=== PATIENT | female | born 1945 | race African-American/Black ===

== ENCOUNTER 2018-05-14 17:41 | Emergency (ER) | payer OTHER ==
[~2018-05-14] VITALS: Ht 167.6 cm; Wt 132.4 kg
[2018-05-14] MEDS ORDERED: ASPirin 81 mg TAB PO ONE (18:30)
[2018-05-14 18:46] LABS: Basophils # (auto) 0.1 uL; Eosinophils # (auto) 0.1 uL; Eosinophils % (auto) 1.1 % (0.0-7.0); Hematocrit 38.9 % (36.0-46.0); Hemoglobin 12.5 g/dL (12.2-16.2); Lymphocytes # (auto) 1.6 uL; Lymphocytes % (auto) 17.5 % (10.0-50.0); Mean Corpuscular Hemoglobin 27.9 pg (28.0-32.0); Mean Corpuscular Hgb Conc. 32.2 g/dL (32.0-36.0); Mean Corpuscular Volume 86.9 fL (80.0-100.0); Monocytes # (auto) 0.8 uL; Monocytes % (auto) 9.1 % (0.0-12.0); Neutrophils # (auto) 6.5 uL; Neutrophils % (auto) 71.3 % (37.0-80.0); Platelet Count (auto) 253 10^3/uL (140-450); Red Blood Cells 4.48 10^6/uL (4.0-5.20); Red Cell Distribution Width 15.3 % (11.8-14.3); White Blood Cell 9.1 10^3/uL (4.4-10.8)
[2018-05-14 19:01] LABS: INR 0.96 (0.9-1.15); Partial Thromboplastin Time 27.8 sec (23.78-33.04); Prothrombin Time 10.3 sec (9.27-12.13)
[2018-05-14 19:04] LABS: Calcium 8.2 mg/dL (8.5-10.1); Magnesium 1.9 mg/dL (1.6-2.6); Potassium 3.6 mmol/L (3.5-5.1)
[2018-05-14 19:10] LABS: BUN/Creatinine Ratio 15.1; Bilirubin, Total 0.2 mg/dL (0.2-1.0); Total Protein 7.3 g/dL (6.4-8.2)
[2018-05-14 22:09] VITALS: BP 168/83
== END 2018-05-14 22:37 | disposition short-term general hospital (02) ==
LOC: ER 17:41 → EDBD 17:41 → ER 22:37
DX: I24.9 Acute ischemic heart disease, unspecified (principal); I48.91 Unspecified atrial fibrillation; E11.9 Type 2 diabetes mellitus without complications; J45.909 Unspecified asthma, uncomplicated; Z90.710 Acquired absence of both cervix and uterus; Z90.89 Acquired absence of other organs
CPT/HCPCS: 36415; 71045; 80053; 82962; 83735; 83880; 84484; 85025; 85610; 85730; 93005; 94761

== ENCOUNTER 2025-01-01 23:08 | Emergency (ER) | payer OTHER ==
[~2025-01-01] VITALS: Ht 152.4 cm; Wt 113.4 kg
[2025-01-01 23:46] LABS: Basophils # (auto) 0.1 10 ^3/uL (0-0.2); Basophils % (auto) 1.1 % (0.0-2.0); Eosinophils # (auto) 0.1 10 ^3/uL (0-0.8); Eosinophils % (auto) 1.2 % (0.0-7.0); Hematocrit 39.5 % (36.0-46.0); Hemoglobin 12.9 g/dL (12.2-16.2); Lymphocytes # (auto) 2.6 10 ^3/uL (0.4-5.4); Lymphocytes % (auto) 26.7 % (10.0-50.0); Mean Corpuscular Hemoglobin 28.6 pg (28.0-32.0); Mean Corpuscular Hgb Conc. 32.6 g/dL (32.0-36.0); Mean Corpuscular Volume 87.8 fL (80.0-100.0); Monocytes # (auto) 0.8 10 ^3/uL (0-1.3); Monocytes % (auto) 8.6 % (0.0-12.0); Neutrophils % (auto) 62.4 % (37.0-80.0); Nucleated Red Blood Cells % 0.1 %; Platelet Count (auto) 223 10^3/uL (140-450); Red Blood Cells 4.49 10^6/uL (4.0-5.20); Red Cell Distribution Width 15.4 % (11.8-14.3); White Blood Cell 9.6 10^3/uL (4.4-10.8)
[2025-01-01 23:54] LABS: Alanine Aminotransferase 13 U/L (7-40); Alkaline Phosphatase 77 U/L (46-116); Anion Gap 10 (5-15); BUN/Creatinine Ratio 18.8 (10.0-20.0); Blood Urea Nitrogen 16 mg/dL (9-23); Calcium 8.8 mg/dL (8.7-10.4); Carbon Dioxide 26 mmol/L (20-31); Partial Thromboplastin Time 26.8 SEC (24.5-34.5); Potassium 3.6 mmol/L (3.5-5.1); Prothrombin Time 10.6 sec (9.3-11.8); Sodium 144 mmol/L (136-145); Total Protein 6.2 g/dL (5.7-8.2)
[2025-01-01 23:58] LABS: Aspartate Aminotransferase 13 U/L (13-40); Bilirubin, Total 0.3 mg/dL (0.2-1.0); Chloride 108 mmol/L (98-107); Glucose 184 mg/dL (74-106)
[2025-01-02 00:04] VITALS: PULSE 54; RESP 11; O2SAT 95
--- NOTE | 2025-01-02 00:05 | ED.PDOC ---
History of Present Illness HPI Comments 79 y/o morbidly obese F is BIBA for 1x day history of nonradiating, sternal chest pain. Per EMS report, pain is intermittent, reproducible with palpation and respirations, and an 8/10 in severity, initially. Patient took 4x ASA prior to EMS arrival and was given 1x NTG en route, with mild improvement of pain to a 6/10 in severity. Patient has a history of asthma, angina, AFib, DM II, HLD, and HTN in addition to having a recent cardiac catheterization and pending consultation for a heart valve replacement for narrowing valves. She denies any palpitations, nausea, vomiting, dizziness, palpation, or further associated symptoms. 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 Helper Notes, Medications, Allergies Allergies: Coded Allergies: NO KNOWN ALLERGIES (Unverified , 02/18/15) Information Source: Patient, Emergency Med Personnel Mode of Arrival: EMS Severity: Moderate Timing: Days Duration: Since onset Prehospital treatment: 12 Lead EKG, ASA, [place], NTG Past Medical History PAST MEDICAL HISTORY: AFIB, Angina, Asthma, CHF, DM, High Lipids, HTN Surgical History: Appendectomy, , Hysterectomy Surgical History (Other): heart catheterization TUBE DEPATCHER History: No Pertinent TUBE DEPATCHER History Family History Family History: No family hx of Cancer, No family hx of Stroke Social History Smoker: Non-Smoker Alcohol: Denies ETOH Use Drugs: Denies Drug Use Lives In: Home All Other Systems: Reviewed and Negative (Comprehensive systems review obtained and negative except for what is stated in the HPI.) Physical Exam General Appearance: Mild Distress, Obese, Other (elderly) HEENT: Normal ENT Inspection, Pharynx Normal, TMs Normal Neck: Full Range of Motion, Non-Tender, Normal, Normal Inspection Respiratory: Chest Non-Tender, Lungs Clear, No Accessory Muscle Use, No Respiratory Distress, Normal Breath Sounds Cardiovascular: No Edema, No JVD, No Murmur, No Gallop, Normal Peripheral Pulses, Regular Rate/Rhythm Breast Exam: Deferred Gastrointestinal: No Organomegaly, Non Tender, No Pulsatile Mass, Normal Bowel Sounds, Soft Genitalia: Deferred Pelvic: Deferred Rectal: Deferred Extremities: No calf tenderness, Normal capillary refill, Normal inspection, Normal range of motion, Non-tender, No pedal edema Musculoskeletal : Apperance: Normal Neurologic: Alert, 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 Was a procedure done?: No EKG EKG : Pulse Rate (adult): 83 [place]: Normal Cardiac Rhythm: NSR Block: None Hypertrophy: None ST: Normal Differential Dx Considerations may include: MD, PE, ACS, PNA, URI, angina, anxiety, pericarditis, gastritis, among others X-Ray, Labs, Meds, VS Vital Signs Date Time Temp Pulse Resp B/P (MAP) Pulse Ox O2 Delivery O2 Flow Rate FiO2 01/02/25 02:56 45 01/02/25 01:05 54 14 128/44 (72) 94 01/02/25 00:13 47 01/02/25 00:08 98.0 54 11 137/36 (69) 95 98.0 01/02/25 00:05 83 01/02/25 00:04 54 11 95 Room Air* 0 21 01/01/25 23:24 97.6 87 20 119/80 (93) 95 97.6 01/01/25 23:08 83 Lab Test 01/02/25 00:22 01/01/25 23:27 Range/Units Troponin I High Sensitivity 18 17 </=34 ng/L White Blood Count 9.6 4.4-10.8 10^3/uL Red Blood Count 4.49 4.0-5.20 10^6/uL Hemoglobin 12.9 12.2-16.2 g/dL Hematocrit 39.5 36.0-46.0 % Mean Corpuscular Volume 87.8 80.0-100.0 fL Mean Corpuscular Hemoglobin 28.6 28.0-32.0 pg Mean Corpuscular Hemoglobin Concent 32.6 32.0-36.0 g/dL Red Cell Distribution Width 15.4 H 11.8-14.3 % Platelet Count 223 140-450 10^3/uL Mean Platelet Volume 8.3 6.9-10.8 fL Neutrophils (%) (Auto) 62.4 37.0-80.0 % Lymphocytes (%) (Auto) 26.7 10.0-50.0 % Monocytes (%) (Auto) 8.6 0.0-12.0 % Eosinophils (%) (Auto) 1.2 0.0-7.0 % Basophils (%) (Auto) 1.1 0.0-2.0 % Neutrophils # (Auto) 6.0 1.6-8.6 10 ^3/uL Lymphocytes # (Auto) 2.6 0.4-5.4 10 ^3/uL Monocytes # (Auto) 0.8 0-1.3 10 ^3/uL Eosinophils # (Auto) 0.1 0-0.8 10 ^3/uL Basophils # (Auto) 0.1 0-0.2 10 ^3/uL Nucleated Red Blood Cells 0.1 % Prothrombin Time 10.6 9.3-11.8 sec Prothrombin Time INR 1.00 0.9-1.15 Activated Partial Thromboplast Time 26.8 24.5-34.5 SEC Sodium Level 144 136-145 mmol/L Potassium Level 3.6 3.5-5.1 mmol/L Chloride Level 108 H 98-107 mmol/L Carbon Dioxide Level 26 20-31 mmol/L Anion Gap 10 5-15 Blood Urea Nitrogen 16 9-23 mg/dL Creatinine 0.85 0.550-1.02 mg/dL Glomerular Filtration Rate Calc 70 >90 mL/min BUN/Creatinine Ratio 18.8 10.0-20.0 Serum Glucose 184 H 74-106 mg/dL Calcium Level 8.8 8.7-10.4 mg/dL Total Bilirubin 0.3 0.2-1.0 mg/dL Aspartate Amino Transferase (AST) 13 13-40 U/L Alanine Aminotransferase (ALT) 13 7-40 U/L Alkaline Phosphatase 77 46-116 U/L Total Protein 6.2 5.7-8.2 g/dL Albumin 4.0 3.2-4.8 g/dL [address] [address] Ph: [phone] DIAGNOSTIC IMAGING Diagnostic Imaging Report : [id number] Signed PATIENT: ANDRADE POOLE ACCT: [id number] UNIT: [id number] : 1945 LOC: ER ROOM / BED: / AGE / SEX: 79 / F ADM STATUS: REG ER SERVICE [id number] ORDERING PHYSICIAN: KELSIE SUAREZ MD PROCEDURE(s): CXRP - CHEST PORTABLE REASON: chest pain ORDER NUMBER(s): [id number], ACCESSION NUMBER(s): [id number] CHEST RADIOGRAPH Indication: chest pain Technique: Single frontal view of the chest was obtained COMPARISON: None FINDINGS: Lines and Tubes: None Lungs: Clear Pleura: No effusion. No pneumothorax. Cardiomediastinal contours: Unremarkable Bones: Unremarkable IMPRESSION: 1. No acute disease. ATED BY: CHIDI GONZALEZ MD DICTATED DATE/TIME: 01/02/25239 SIGNED BY: CHIDI GONZALEZ MD SIGNED DATE/TIME: 01/02/25239 CC: Time of 1ST Reevaluation: 23:50 Reevaluation 1ST: Unchanged Patient Education/Counseling: Diagnosis, Treatment Family Education/Counseling: No Family Present Departure 1 Departure Time of Disposition: 03:37 Impression: Primary Impression: Acute chest pain Additional Impression: Acute coronary syndrome Disposition: 01 HOME / SELF CARE / HOMELESS Condition: Stable Discharged With: Self Comments 79-year-old Female with Chest Pain Chief Complaint: Chest pain/pressure History of Present Illness: 79-year-old female with significant cardiac history including CAD, CHF, and st enosis presents with chest pressure ongoing for approximately 4 hours. Patient received nitroglycerin from EMS with partial improvement, though mild chest pain persists. Patient has known history of diabetes. Review of Systems: Limited by acute presentation Cardiovascular: Positive for chest pressure/pain Otherwise unable to obtain due to acute nature of presentation Medications: Not fully detailed in bread dumper Patient noted to have received nitroglycerin from EMS Allergies: No known drug allergies noted in bread dumper Past Medical History: 1. Coronary Artery Disease 2. Congestive Heart Failure 3. Aortic Stenosis 4. Diabetes Mellitus Lab Results: Blood glucose: 184 mg/dL (elevated) Troponin: 17 (normal) CBC: Unremarkable Chemistry panel: Unremarkable Imaging and Other Relevant Results: EKG: Normal sinus rhythm at 83 BPM, no signs of STEMI Chest X-ray: No acute pathology Medical Decision Making: Summary Statement: 79-year-old female with multiple cardiac risk factors presenting with acute chest pain, partially responsive to nitroglycerin Problem List: 1. Acute chest pain/unstable angina 2. Coronary artery disease 3. Congestive heart failure 4. Diabetes with hyperglycemia Differential Diagnosis: 1. Acute Coronary Syndrome 2. Unstable Angina 3. NSTEMI 4. Stable Angina 5. Acute CHF exacerbation ED Course: Patient evaluated for acute chest pain. Workup included EKG, chest x-ray, and cardiac enzymes. Case discussed with Dr. Mendez at [facility]. Transfer arranged for further management of unstable angina/ACS. Authorization number: [id number] Assessment and Plan: 1. Acute Chest Pain/Unstable Angina: - Transfer accepted to [facility] for higher level of care - Initial stabilization with nitroglycerin showing partial response - Continue cardiac monitoring during transfer 2. Diabetes with Hyperglycemia: - Blood glucose elevated at 184 - Continue usual diabetic management 3. Disposition: - Transfer to [facility] - Transfer arranged with Dr. Mendez - Authorization number: [id number] Billing Information: ICD-10: I20.0 - Unstable angina ICD-10: I25.10 - Atherosclerotic heart disease ICD-10: I50.9 - Heart failure, unspecified ICD-10: E11.9 - Type 2 diabetes mellitus without complications Critical Care Note Critical Care Time?: Yes (35 min-critical care time only) Critical care comment: Total critical care time: Approximately 36 minutes Due to a high probability of clinically significant, life threatening deterioration, the patient required my highest level of preparedness to intervene emergently and I personally spent this critical care time directly and personally managing the patient. This critical care time included obtaining a history; examining the patient; pulse oximetry; ordering and review of studies; arranging urgent treatment with development of a management plan; evaluation of patient's response to treatment; frequent reassessment; and, discussions with other providers. This critical care time was performed to assess and manage the high probability of imminent, life-threatening deterioration that could result in multi-organ failure. It was exclusive of separately billable procedures and treating other patients. Stability Stability form required: No Heart Score Heart Score: Heart Score Response (Comments) Value History Moderate Suspicious 1 EKG Normal 0 Age >65 2 Risk Factors >3 or Hx ASHD 2 Troponin Normal limit 0 Total 5 I personally scribed for KELSIE SUAREZ MD ([email or web address]) on 01/02/25 at 00:05. Electronically submitted by Ivan Mendoza ([email or web address]). I personally scribed for KELSIE SUAREZ MD ([email or web address]) on 01/02/25 at 03:28. Electronically submitted by Ivan Mendoza ([email or web address]). KELSIE SUAREZ MD Jan 02, 2025 00:05
--- NOTE | 2025-01-02 02:42 | DVH ---
CHEST RADIOGRAPH Indication: chest pain Technique: Single frontal view of the chest was obtained COMPARISON: None FINDINGS: Lines and Tubes: None Lungs: Clear Pleura: No effusion. No pneumothorax. Cardiomediastinal contours: Unremarkable Bones: Unremarkable IMPRESSION: 1. No acute disease.
[2025-01-02] MEDS: ASPirin 81 mg TAB PO ONE (04:13)
[2025-01-02] MEDS: NITROGLYCERIN 2% OINT 1GM PKG TD ONE (04:15)
[2025-01-02 04:58] LABS: Urine Bacteria None Seen /hpf (None Seen)
[2025-01-02 05:41] LABS: Urine Blood TRACE /uL (Negative); Urine Clarity Clear (Clear); Urine Color Light-Yellow (Yellow); Urine Protein, UAD Negative (Negative); Urine Squamous Epithelial Cell FEW /hpf (<5); Urine Urobilinogen Normal (Negative); Urine WBC 1 /HPF (0-5); Urine pH 5.5 (5.0-9.0)
[2025-01-02 08:52] VITALS: BP 147/83; PULSE 14; RESP 48; TEMP 98.2; O2SAT 95
--- NOTE | 2025-01-02 10:43 | ECG ---
[facility] Test Date: 2025-01-02 Test Time: 00:13:38 Pat Name: ANDRADE POOLE Department: ED Room: Gender: F Metallurgical Specialist: JABARI : 1945 Requested By: KELSIE SUAREZ Order Number: [id number] Reading MD: Gaston Evangelista Measurements Intervals [place] Rate: 47 P: 59 ID: [id number] QRS: -50 QRSD: 90 T: 103 QT: 493 QTc: 436 Interpretive Statements Sinus bradycardia Atrial premature complexes Prolonged ID interval Left anterior fascicular block Left ventricular hypertrophy Abnormal T, consider ischemia, lateral leads Electronically Signed On 01-02-2025 15:00:03 PDT by Gaston Evangelista Please click the below link to view image of tracing.
--- NOTE | 2025-01-03 07:07 | ECG ---
[facility] Test Date: 2025-01-01 Test Time: 23:07:51 Pat Name: ANDRADE POOLE Department: ED Room: Gender: F Maternity Nurse: JABARI : 1945 Requested By: KELSIE SUAREZ Order Number: [id number] Reading MD: Gaston Evangelista Measurements Intervals [place] Rate: 83 P: 0 ME: 344 QRS: -22 QRSD: 82 T: 92 QT: 408 QTc: 480 Interpretive Statements Sinus rhythm Prolonged ME interval LVH with secondary repolarization abnormality Borderline prolonged QT interval Electronically Signed On 01-03-2025 9:34:19 PDT by Gaston Evangelista Please click the below link to view image of tracing.
== END 2025-01-02 09:05 | disposition short-term general hospital (02) ==
LOC: EDBD 23:08 → ER 23:12
DX: I24.9 Acute ischemic heart disease, unspecified (principal); R07.89 Other chest pain; E11.65 Type 2 diabetes mellitus with hyperglycemia; I11.0 Hypertensive heart disease with heart failure; I25.110 Atherosclerotic heart disease of native coronary artery with unstable angina pectoris; I48.91 Unspecified atrial fibrillation; E78.5 Hyperlipidemia, unspecified; I50.9 Heart failure, unspecified; E66.01 Morbid (severe) obesity due to excess calories; J45.909 Unspecified asthma, uncomplicated; Z88.6 Allergy status to analgesic agent; Z90.49 Acquired absence of other specified parts of digestive tract; Z90.710 Acquired absence of both cervix and uterus; Z68.42 Body mass index [BMI] 45.0-49.9, adult
CPT/HCPCS: 36415; 71045; 80053; 81001; 84484; 85025; 85610; 85730; 93005; 99291